=== PATIENT | male | born 1955 | race Caucasian/White ===

== ENCOUNTER → 2017-11-12 13:17 | Outpatient (CLI) | payer MEDICARE, MEDICAID, SELFPAY ==
--- NOTE | 2017-11-12 13:37 | XR_ITS ---
XR ankle LT min 3V , XR tibia fibula LT 2V Ordering Physician: Clement Calzada MD Patient Age: 62 years: Male HISTORY: ITS.REASON: LEFT ANKLE DEFOMITY. Pain. Ankle pain TECHNIQUE: Left ankle : 3 views Left tib-fib: AP lateral view COMPARISON : Left ankle: 3 views October 2012 Left tib-fib: AP lateral view LEFT ANKLE 3 VIEWS Severe progressive deformity at the left ankle since 2012 and 2010 reflecting progressive Charcot's joint changes. Lateral dislocation . Marked medial shift &/dislocation of ankle/foot relative to the distal tibia... Marked progressive erosion and bone loss. Erosion and loss of dome of talus. Only small residual flat residual inferior talus..... 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 Interval fractures transversing medial malleolus. The medial malleolus tip fragment now seen residing medial to the distal talus,. Also old transverse fracture at the distal fibula. Marked medial tilt of the distal most fibula towards the medial displaced talus at this fracture The severe disorganization and deformity occur at the ankle and hindfoot. The distal tarsals and proximal metatarsals appear intact LEFT TIB-FIB of the lower leg again show the severe deformity & Charcot's joint changes at the ankle joint as discussed above. The shaft of tibia and fibula appear intact.. Degenerative changes are seen at the knee Question lucency towards medial margin the medial tibial plateau. Artifact versus generous, subchondral cyst. This area is not well visualized on this lower leg study & may benefit from a dedicated knee exam if pain at knee. Extensive atherosclerotic calcification throughout lower leg, ankle into foot reflecting likely underlying diabetes IMPRESSION: Severe this organization & deformity at the left ankle reflecting progressive severe Charcot's joint changes at ankle. Marked progression of findings since 2012 comparison study. This results in medial displacement & subluxation of the talus/foot relative to the distal tibia with with associated findings detailed in text. Marked progressive Erosion/flattening the talus which now obliterates ankle mortise. Deformity
== END ==
PROVIDERS: PCP Internal Medicine Adolescent Medicine; Visit Provider Internal Medicine Adolescent Medicine
DX: M21.962 Unspecified acquired deformity of left lower leg (principal)
CPT/HCPCS: 73590; 73610

== ENCOUNTER → 2017-12-23 14:50 | Outpatient (CLI) | payer MEDICARE, MEDICAID, SELFPAY ==
[2017-12-23 15:43] LABS: INR 1.26 (0.9-1.1); Prothrombin Time 12.9 seconds (9.4-11.8)
[2017-12-23 18:11] LABS: Alanine Aminotransferase 10 U/L (12-78); Albumin Level 3.1 gm/dL (3.4-5.0); Albumin/Globulin Ratio 0.8 (1.1-1.8); Alkaline Phosphatase 133 U/L (46-116); Anion Gap 14.7 mEq/L (5-15); Aspartate Amino Transferase 14 U/L (15-37); Bilirubin,Total 0.4 mg/dL (0.2-1.0); Blood Urea Nitrogen 25 mg/dL (7-18); Calcium 8.4 mg/dL (8.5-10.1); Carbon Dioxide 31 mmol/L (21.0-32.0); Chloride 100 mmol/L (98-107); Estimated Glomerular Filt Rate 10 ml/min (>60); GFR (African American) 12 ML/MIN (>60); Globulin 3.8 gm/dl (1.3-3.2); Glucose 102 mg/dL (74-106); Potassium 3.7 mmoL/L (3.5-5.1); Sodium 142 mmol/L (136-145); Total Protein,Serum 6.9 gm/dL (6.4-8.2)
[2017-12-23 18:28] LABS: Creatinine,Serum 5.88 mg/dL (0.70-1.30)
== END ==
PROVIDERS: Visit Provider Internal Medicine Adolescent Medicine
DX: I48.2 Chronic atrial fibrillation (principal)
CPT/HCPCS: 36415; 80053; 85610